=== PATIENT | male | born 1975 | race Native Hawaiian/Other Pacific Islander ===

== ENCOUNTER 2019-06-19 00:05 | Emergency (ER) | payer OTHER ==
[~2019-06-19] VITALS: Ht 182.9 cm; Wt 73.0 kg
[2019-06-19 01:51] VITALS: BP 147/84; TEMP 98.4
== END 2019-06-19 01:52 ==
LOC: ED 00:05
DX: M54.40 Lumbago with sciatica, unspecified side (principal); G89.29 Other chronic pain; S22.32XA Fracture of one rib, left side, initial encounter for closed fracture; Y04.0XXA Assault by unarmed brawl or fight, initial encounter; Y92.149 Unspecified place in prison as the place of occurrence of the external cause
CPT/HCPCS: 96372; 99283; J1885; J2930